=== PATIENT | female | born 1975 | race Hispanic/Latino ===

== ENCOUNTER → 2019-08-26 | Outpatient (CLI) | payer SELFPAY | END | disposition home or self-care (01) | LOC: RAH 06:37 | PROVIDERS: ATTEND Family Medicine | DX: R10.11 Right upper quadrant pain (principal) | CPT/HCPCS: 78227; A9537 ==

== ENCOUNTER 2019-10-02 05:39 | Day surgery (SDC) | payer SELFPAY ==
[2019-09-30 12:05] VITALS: BP 96/59
[2019-09-30 12:19] LABS: BASOPHILS % (AUTO) 0.2 % (0.0-5.0); EOSINOPHILS % (AUTO) 2.2 % (0.0-8.0); HEMATOCRIT 40.4 % (36-48); LYMPHOCYTES % (AUTO) 39.2 % (21.0-51.0); MEAN CORPUSCULAR HEMOGLOBIN 31.4 pg (27.0-33.0); MEAN CORPUSCULAR HGB CONC 34.2 g/dL (32.0-36.0); MEAN CORPUSCULAR VOLUME 91.8 fL (79-99); NEUTROPHILS % (AUTO) 51.9 % (40.0-77.0); PLATELET COUNT (AUTO) 269 K/uL (130-400); RED CELL DISTRIBUTION WIDTH 11.9 % (11.0-15.5); WHITE BLOOD COUNT (AUTO) 8.7 K/uL (4.8-10.8)
[2019-09-30 12:34] LABS: ALBUMIN 3.9 g/dL (3.5-5.0); BILIRUBIN,DIRECT 0.2 mg/dL (0.0-0.3); BILIRUBIN,TOTAL 0.9 mg/dL (0.2-1.0); TOTAL PROTEIN, SERUM 7.4 g/dL (6.0-8.3)
[2019-10-02] VITALS (12 sets, daily range): BP systolic 102–137; BP diastolic 54–87
[~2019-10-02] VITALS: Ht 152.4 cm; Wt 63.9 kg
[~2019-10-02 05:39] MED LIST: ACET1TAB25 PO; DICY20TA11 PO
[2019-10-02] MEDS ORDERED: LACTATED RINGERS 1000ML 1,000 ML IV ONE (09:53)
[2019-10-02] MEDS ORDERED: LIDOCAINE PF 2% 5ML ABBOJECT ONE (11:24)
[2019-10-02] MEDS ORDERED: PROPOFOL 10 MG/ML 20ML VIAL IV ONE (11:25)
[2019-10-02] MEDS ORDERED: ONDANSETRON HCL 4 MG/2 ML VIAL ONE (11:25)
[2019-10-02] MEDS ORDERED: ROCURONIUM 10MG/1ML SYR 10 MG/ML ML ONE (11:25)
[2019-10-02] MEDS ORDERED: MIDAZOLAM HCL 1 MG/ML 2ML VIAL ONE (11:25)
[2019-10-02] MEDS ORDERED: FENTANYL CITRATE PF 50 MCG/1 ML 2ML VIAL ONE (11:26)
[2019-10-02] MEDS ORDERED: NEOSTIGMINE 5MG/5ML SYR IV ONE (12:32)
[2019-10-02] MEDS ORDERED: MEPERIDINE-PF 25 MG/ML SYG ONE (12:35)
[2019-10-02] MEDS ORDERED: KETOROLAC TROMETHAMINE 30MG/ML ONE (13:10)
--- NOTE | 2019-10-02 13:45 | NUR ---
PATIENT ARRIVED TO DAY PATIENT VIA STRETCHER BY LAURITA WILSON. PATIENT [id number], RESPIRATIONS UNLABORED, VITAL SIGNS STABLE. DRESSING TO RIGHT UPPER QUADRANT AND MID ABDOMEN (BANDAIDS X4 WITH STERI STRIPS). BANDAIDS CLEAN DRY AND INTACT, NO BLEEDING NOTED. PATIENT DENIES PAIN AT THIS TIME.
--- NOTE | 2019-10-02 14:05 | NUR ---
DISCHARGE INSTRUCTIONS PROVIDED TO PATIENT'S SPOUSE IN MALAY, HANDOUTS PROVIDED ON CHOLECYSTECTOMY AFTER CARE AND FOLLOW UP APPOINTMENT PROVIDED. INSTRUCTED PATIENT NOT TO REMOVED BANDAIDS/STERI STRIPS UNTIL SEEN IN OFFICE BY DR OLIVEIRA. ALL QUESTIONS/CONCERNS ADDRESSED.
--- NOTE | 2019-10-02 14:15 | NUR ---
PATIENT DISCHARGED FROM FACILITY VIA WHEELCHAIR BY LAURITA ROSA. PATIENT ASSISTED INTO PRIVATE VEHICLE DRIVEN BY FAMILY MEMBER.
== END 2019-10-02 14:15 | disposition home or self-care (01) ==
LOC: DAH 05:39
PROVIDERS: ATTEND Surgery
DX: K81.1 Chronic cholecystitis (principal); E66.9 Obesity, unspecified; Z79.899 Other long term (current) drug therapy; Z98.890 Other specified postprocedural states; Z68.30 Body mass index [BMI] 30.0-30.9, adult; Z82.49 Family history of ischemic heart disease and other diseases of the circulatory system
CPT/HCPCS: 36415; 47562; 80076; 85025; 88304; A4215; A4221; A4222; A4223; A4450; A4600; A4663; A6260; C1769 ×4; J1885; J2001; J2175; J2250; J2405; J2704; J2710; J3010; J7030; J7120 ×2

== ENCOUNTER 2022-10-02 01:47 | Emergency (ER) | payer OTHER, SELFPAY ==
[~2022-10-02] VITALS: Ht 162.6 cm; Wt 67.1 kg
[~2022-10-02 01:47] MED LIST changes: +ACET-2079 PO; -ACET1TAB25 PO; -DICY20TA11 PO; +DICY20TA3 PO
[2022-10-02] MEDS ORDERED: ONDANSETRON 4MG INJ ONE (02:21)
[2022-10-02 02:23] LABS: BASOPHILS % (AUTO) 0.3 % (0.0-5.0); HEMATOCRIT 38.1 % (36-48); LYMPHOCYTES % (AUTO) 30.5 % (21.0-51.0); MEAN CORPUSCULAR HEMOGLOBIN 31.7 pg (27.0-33.0); MEAN CORPUSCULAR HGB CONC 34.9 g/dL (32.0-36.0); MEAN CORPUSCULAR VOLUME 90.7 fL (79-99); MONOCYTES % (AUTO) 4.7 % (3.0-13.0); NEUTROPHILS % (AUTO) 63.2 % (40.0-77.0); PLATELET COUNT (AUTO) 245 K/uL (130-400); RED CELL DISTRIBUTION WIDTH 11.9 % (11.0-15.5); WHITE BLOOD COUNT (AUTO) 12.2 K/uL (4.8-10.8)
[2022-10-02] MEDS ORDERED: ONDANSETRON 4MG INJ IVP ONE ×2 (02:30→04:30)
[2022-10-02 02:32] LABS: APPEARANCE,URINE CLEAR (CLEAR); BILIRUBIN,URINE NEGATIVE (NEGATIVE); COLOR,URINE DARK-YELLOW (YELLOW); GLUCOSE, URINE (UA) NEGATIVE (NEGATIVE); KETONES,URINE NEGATIVE (NEGATIVE); LEUKOCYTE ESTERASE ,URINE NEGATIVE Leu/uL (NEGATIVE); NITRATE,URINE 1+ (NEGATIVE); OCCULT BLOOD,URINE NEGATIVE (NEGATIVE); PH,URINE 6.5 (5.0-8.0); PROTEIN,URINE NEGATIVE (NEGATIVE); UROBILINOGEN,URINE 0.2 mg/dL (0.2-1.0)
[2022-10-02 02:35] LABS: CREATININE 0.7 mg/dL (0.5-1.5); POTASSIUM 3.4 mmol/L (3.5-5.1)
[2022-10-02 02:39] LABS: TOTAL PROTEIN, SERUM 7.2 g/dL (6.0-8.3)
[2022-10-02 02:41] LABS: BACTERIA,URINE RARE /HPF (None Seen); RBC,URINE 0-1 /HPF (0-1); SQUAMOUS EPITHELIAL CELL,UR RARE /HPF (0-2); WBC,URINE 0-1 /HPF (0-1)
[2022-10-02] MEDS ORDERED: MORPHINE 4 MG SYG ONE (04:24)
[2022-10-02] MEDS ORDERED: MORPHINE 4 MG SYG IVP ONE (04:30)
[2022-10-02] MEDS ORDERED: 0.9%NACL 1000ML 1,000 ML IV ONE (05:30)
[2022-10-02] MEDS ORDERED: ZOSYN 3.375GM+NS 50ML 50 ML ONE (06:37)
[2022-10-02] MEDS ORDERED: ZOSYN 3.375GM +NS 50ML IV ONE (07:00)
[2022-10-02] MEDS ORDERED: LIDOCAINE HCL 2% VISCOUS 15 ML UDCUP ONE (10:14)
[2022-10-02] MEDS ORDERED: MAG/ALUM/SIMETH 30 ML UDCUP ONE (10:14)
[2022-10-02] MEDS ORDERED: LIDOCAINE HCL 2% VISCOUS 15 ML UDCUP PO ONE (10:30)
[2022-10-02] MEDS ORDERED: MAG/ALUM/SIMETH 30 ML UDCUP PO ONE (10:30)
[2022-10-02] MEDS ORDERED: IOHEXOL 350 MG/ML 100ML INFUS..BTL IV ONE (10:36)
[2022-10-02] MEDS ORDERED: NAPR-1196 PO (11:51)
[2022-10-02 11:59] VITALS: BP 107/67
== END 2022-10-02 12:16 | disposition home or self-care (01) ==
LOC: EDH 01:47
DX: N83.201 Unspecified ovarian cyst, right side (principal); K76.0 Fatty (change of) liver, not elsewhere classified; Z90.49 Acquired absence of other specified parts of digestive tract; Z98.890 Other specified postprocedural states
CPT/HCPCS: 99285; 74177; 96365; 96366; 76705; 96375; 80053; 83690; 85025; 87088; 83605; 81001; 81025; 36415; 96376; 74176; J7030; J2405 ×2; J2270; J2543; Q9967